=== PATIENT | male | born 2000 | race Caucasian/White ===

== ENCOUNTER 2022-04-08 20:01 | Inpatient (IN) | payer OTHER, BC ==
[~2022-04-08 20:01] MED LIST: Iopamidol 370 76% 100 ML VIAL ONE
[2022-04-08 20:20] LABS: Hemoglobin 14.9 g/dL (14.0-18.0); Mean Corpuscular HGB CONC 34.7 g/dL (32.0-36.0); Mean Corpuscular Hemoglobin 31.3 pg (27.0-31.0); Mean Corpuscular Volume 90.3 fl (78.0-98.0); Mean Platelet Volume 6.7 fL (7.4-10.4); Platelet Count 375 10x3/uL (130-400); RBC Distribution Width 11.3 % (11.5-14.5); Red Blood Cell (RBC) Count 4.75 mill/uL (4.70-6.10); White Blood Cell (WBC) Count 24.5 10x3/uL (4.8-10.8)
[2022-04-08] MEDS ORDERED: Ondansetron PF 4 MG/2 ML Vial ONE (20:24)
[2022-04-08 20:32] LABS: Prothrombin Time 13.4 sec (12.0-14.7)
[2022-04-08 20:34] LABS: ALT (SGPT) 32 U/L (8-55); AST (SGOT) 35 U/L (5-34); Albumin 4.4 g/dL (3.5-5.0); Alkaline Phosphatase 102 U/L (40-110); Anion Gap 15 mmol/L (10-20); BUN (Urea Nitrogen) 11 mg/dL (8.9-20.6); Bilirubin, Total 0.5 mg/dL (0.2-1.2); Calc. Creatinine Clearance 0 mL/min (70-130); Calcium 9.2 mg/dL (7.8-10.44); Carbon Dioxide 18 mmol/L (22-29); Chloride 107 mmol/L (98-107); Estimated GFR 95; Globulin 3.4 g/dL (2.4-3.5); Glucose 139 mg/dL (70-105); Potassium 3.5 mmol/L (3.5-5.1); Protein, Total 7.8 g/dL (6.0-8.3); Sodium 136 mmol/L (136-145)
[2022-04-08 20:48] LABS: Lymphocytes 13 % (21-51); MDiff Complete? YES; Metamyelocyte 1 % (0-0); Monocytes 3 % (0-10); Neutrophil 83 % (42-75); Platelet Morphology Comment Appears Adequate; RBC Morphology Normal; Vacuoles SLIGHT
[2022-04-08 20:53] LABS: Acetaminophen Less than 10.0 mcg/mL (10.0-30.0); Alcohol Less than 10 mg/dL (Less than 10); Salicylate Less than 8.0 mg/dL (15.0-30.0)
[2022-04-08] MEDS ORDERED: HYDROmorphone 0.5 MG/0.5 ML SYRINGE ONE (20:56)
[2022-04-08] MEDS ORDERED: Ketorolac Tromethamine 30 MG/ML VIAL ONE (20:56)
[2022-04-08] MEDS ORDERED: Ondansetron PF 4 MG/2 ML Vial IVP PRN (21:04)
[2022-04-08] MEDS ORDERED: hydrALAZINE 20 MG/ML VIAL SLOW IVP PRN (21:04)
[2022-04-08] MEDS ORDERED: Dextrose 5% in Water 1,000 ML IV PRN (21:04)
[2022-04-08] MEDS ORDERED: Dextrose 50% Abboject 50 ML SYRINGE SLOW IVP PRN (21:04)
[2022-04-08 21:40] LABS: CK (CPK) 215 U/L (30-200); Magnesium 1.7 mg/dL (1.6-2.6); Phosphorus 2.9 mg/dL (2.3-4.7)
[2022-04-08 22:18] LABS: Amphetamine Detected (NotDetected); Barbiturates Screen Not Detected (NotDetected); Benzodiazepine Screen Not Detected (NotDetected); Cocaine Metabolite Screen Not Detected (NotDetected); Methadone Not Detected (NotDetected); Methamphetamine Not Detected (NotDetected); Opiate Screen Detected (NotDetected); Oxycodone Screen Not Detected (NotDetected); Phencyclidine (PCP) Not Detected (NotDetected); THC/Cannabinoid Screen Not Detected (NotDetected); Tricyclic Screen Not Detected (NotDetected)
[2022-04-08] MEDS ORDERED: Potassium Phosphate 15 MMOL in Sodium Chloride 0.9% 250 ML 250 ML IVPB SCH (22:30)
[2022-04-08] MEDS ORDERED: Magnesium 2 GM/50 ML(in water) 2 GM in Premix Bag 1 BAG IVPB SCH (22:30)
[2022-04-08 22:45] VITALS: BMI 25.8
[2022-04-08] MEDS: Cyclobenzaprine 10 MG TAB PO PRN (22:58)
[2022-04-08] MEDS: Sodium Chloride 0.9% 1,000 ML IV SCH (22:59)
[2022-04-08] MEDS: Acetaminophen 500 MG TAB PO SCH (23:00)
[2022-04-08] MEDS: traMADol HCl 50 MG TAB PO SCH (23:02)
[2022-04-08 23:11] LABS: Lactic Acid 2.3 mmol/L (0.5-2.2)
[2022-04-08] MEDS: Morphine 4 MG/ML VIAL SLOW IVP PRN (23:45)
[2022-04-08] MEDS: Ketorolac Tromethamine 30 MG/ML VIAL IVP SCH (23:52)
[2022-04-09] MEDS: Ketorolac Tromethamine 30 MG/ML VIAL IVP SCH ×5 (00:11→23:13)
[2022-04-09 02:46] LABS: SARS-CoV-2 NAA Rapid Test Not Detected (NotDetected)
[2022-04-09] MEDS: Morphine 4 MG/ML VIAL SLOW IVP PRN ×4 (03:20→15:08)
[2022-04-09] MEDS: Acetaminophen 500 MG TAB PO SCH ×3 (05:08→17:08)
[2022-04-09] MEDS: traMADol HCl 50 MG TAB PO SCH ×3 (05:09→17:08)
[2022-04-09] MEDS: Sodium Chloride 0.9% 1,000 ML IV SCH ×2 (05:58→15:43)
[2022-04-09 06:17] LABS: #Eosinphils 0.1 thou/uL (0.0-0.7); #Lymphocytes 1.7 thou/uL (1.20-3.40); #Monocytes 0.8 thou/uL (0.11-0.59); #Neutrophils 6.2 thou/uL (1.40-6.50); %Basophils 0.1 % (0.0-1.0); %Eosinophils 0.9 % (0.0-10.0); %Lymphocytes 19.4 % (21.0-51.0); %Monocytes 9.5 % (0.0-10.0); %Neutrophils 70.2 % (42.0-75.0); Mean Corpuscular HGB CONC 34.3 g/dL (32.0-36.0); Mean Corpuscular Hemoglobin 31.7 pg (27.0-31.0); Mean Corpuscular Volume 92.2 fl (78.0-98.0); Mean Platelet Volume 6.5 fL (7.4-10.4); Platelet Count 291 10x3/uL (130-400); RBC Distribution Width 11.3 % (11.5-14.5); Red Blood Cell (RBC) Count 3.79 mill/uL (4.70-6.10); White Blood Cell (WBC) Count 8.9 10x3/uL (4.8-10.8)
[2022-04-09] MEDS: Cyclobenzaprine 10 MG TAB PO PRN ×2 (06:30→21:52)
[2022-04-09 06:39] LABS: Anion Gap 9 mmol/L (10-20); BUN (Urea Nitrogen) 9 mg/dL (8.9-20.6); Calc. Creatinine Clearance 146 mL/min (70-130); Calcium 8.2 mg/dL (7.8-10.44); Carbon Dioxide 20 mmol/L (22-29); Chloride 106 mmol/L (98-107); Estimated GFR 126; Glucose 87 mg/dL (70-105); Potassium 3.4 mmol/L (3.5-5.1); Sodium 132 mmol/L (136-145)
[2022-04-09] MEDS: Potassium Chloride 20 MEQ in Premix Bag 1 BAG IVPB SCH ×2 (08:08→11:09)
[2022-04-09] MEDS: Gabapentin 300 MG CAP PO SCH ×3 (08:13→21:49)
[2022-04-09] MEDS: Polyethylene Glycol 3350 17 GM Packet PO SCH (08:13)
[2022-04-09] MEDS: Famotidine 20 MG TAB PO SCH ×2 (08:13→21:48)
[2022-04-09] MEDS: Senokot S 8.6-50 MG TAB PO SCH ×2 (08:14→21:53)
[2022-04-09] MEDS ORDERED: Clindamycin/D5W 900 MG in Premix Bag 1 BAG IVPB SCH ×3 (08:30→16:00)
[2022-04-09] MEDS ORDERED: Potassium Chloride 40 MEQ in Premix Bag 1 BAG IVPB SCH (09:00)
[2022-04-09] MEDS ORDERED: Clindamycin/D5W 900 mg/50 ml Premix Bag ONE (09:34)
[2022-04-09] MEDS ORDERED: Dexmedetomidine 200 MCG/2 ML VIAL ONE (09:51)
[2022-04-09] MEDS ORDERED: Fentanyl 250 MCG/5 ML VIAL ONE (09:58)
[2022-04-09] MEDS ORDERED: HYDROmorphone 0.5 MG/0.5 ML SYRINGE ONE (09:58)
[2022-04-09] MEDS ORDERED: Lidocaine 1% PF 5 ML VIAL ONE (10:06)
[2022-04-09] MEDS ORDERED: Dexamethasone 20 MG/5 ML VIAL ONE (10:06)
[2022-04-09] MEDS ORDERED: PROPOFOL 200 MG/20 ML VIAL ONE (10:06)
[2022-04-09] MEDS ORDERED: Ondansetron PF 4 MG/2 ML Vial ONE (10:06)
[2022-04-09] MEDS ORDERED: Ketorolac Tromethamine 30 MG/ML VIAL ONE (10:06)
[2022-04-09] MEDS ORDERED: PHENYLEPHRINE-NS 100 MCG/ML 10 ML SYRINGE ONE (10:06)
[2022-04-09] MEDS ORDERED: Hydrocortisone Sod Succ/PF 100 mg/2 ml Vial ONE (11:02)
[2022-04-09] MEDS ORDERED: Ondansetron HCl/PF 4 MG/2 ML Vial IVP PRN (12:16)
[2022-04-09] MEDS ORDERED: Promethazine HCl 25 MG/ML VIAL IM PRN (12:16)
[2022-04-09] MEDS ORDERED: HYDROmorphone 2 MG/ML VIAL SLOW IVP PRN (12:16)
[2022-04-09] MEDS: Clindamycin/D5W 900 MG in Premix Bag 1 BAG IVPB SCH (17:07)
[2022-04-09] MEDS ORDERED: Acetaminophen/Codeine 30-300mg Tablet PO PRN (21:18)
[2022-04-09] MEDS: Acetaminophen/Codeine 30-300mg Tablet PO SCH (23:12)
[2022-04-09] MEDS: Acetaminophen 325 MG TAB PO SCH (23:27)
[2022-04-10] MEDS: Clindamycin/D5W 900 MG in Premix Bag 1 BAG IVPB SCH (01:56)
[2022-04-10] MEDS: Ketorolac Tromethamine 30 MG/ML VIAL IVP SCH ×3 (05:14→17:28)
[2022-04-10] MEDS: Acetaminophen 325 MG TAB PO SCH ×4 (05:17→23:05)
[2022-04-10] MEDS: Acetaminophen/Codeine 30-300mg Tablet PO SCH ×4 (05:17→23:06)
[2022-04-10 07:28] LABS: #Lymphocytes 0.9 thou/uL (1.20-3.40); #Monocytes 0.6 thou/uL (0.11-0.59); #Neutrophils 12.3 thou/uL (1.40-6.50); %Basophils 0.1 % (0.0-1.0); %Eosinophils 0.3 % (0.0-10.0); %Lymphocytes 6.2 % (21.0-51.0); %Monocytes 4.4 % (0.0-10.0); Hemoglobin 10.7 g/dL (14.0-18.0); Mean Corpuscular HGB CONC 34.2 g/dL (32.0-36.0); Mean Corpuscular Hemoglobin 31.9 pg (27.0-31.0); Mean Corpuscular Volume 93.1 fl (78.0-98.0); Mean Platelet Volume 6.8 fL (7.4-10.4); Platelet Count 245 10x3/uL (130-400); RBC Distribution Width 11.1 % (11.5-14.5); Red Blood Cell (RBC) Count 3.37 mill/uL (4.70-6.10); White Blood Cell (WBC) Count 13.8 10x3/uL (4.8-10.8)
[2022-04-10 07:57] LABS: Chloride 106 mmol/L (98-107)
[2022-04-10 07:58] LABS: Calcium 8.5 mg/dL (7.8-10.44); Potassium 3.8 mmol/L (3.5-5.1); Sodium 132 mmol/L (136-145)
[2022-04-10 07:59] LABS: Glucose 161 mg/dL (70-105)
[2022-04-10 08:00] LABS: Anion Gap 9 mmol/L (10-20); Carbon Dioxide 21 mmol/L (22-29)
[2022-04-10 08:02] LABS: Calc. Creatinine Clearance 152 mL/min (70-130); Estimated GFR 128; Phosphorus 2.8 mg/dL (2.3-4.7)
[2022-04-10 08:03] LABS: BUN (Urea Nitrogen) 5 mg/dL (8.9-20.6)
[2022-04-10 08:04] LABS: Magnesium 1.6 mg/dL (1.6-2.6)
[2022-04-10] MEDS: Gabapentin 300 MG CAP PO SCH ×3 (08:40→20:45)
[2022-04-10] MEDS: Famotidine 20 MG TAB PO SCH ×2 (08:41→20:45)
[2022-04-10] MEDS: Senokot S 8.6-50 MG TAB PO SCH ×2 (09:00→20:47)
[2022-04-10] MEDS: Polyethylene Glycol 3350 17 GM Packet PO SCH (09:00)
[2022-04-10] MEDS ORDERED: Magnesium 2 GM/50 ML(in water) 3 GM in Premix Bag 1 BAG IVPB SCH (09:30)
[2022-04-10] MEDS ORDERED: Magnesium Sulfate 3 GM in Sodium Chloride 0.9% 100 ML IVPB SCH (10:00)
[2022-04-10] MEDS: Cyclobenzaprine 10 MG TAB PO PRN (14:39)
[2022-04-10] MEDS: Ibuprofen 800 MG TAB PO PRN (20:45)
[2022-04-11] MEDS: Acetaminophen 325 MG TAB PO SCH (05:42)
[2022-04-11] MEDS: Acetaminophen/Codeine 30-300mg Tablet PO SCH ×4 (05:42→23:39)
[2022-04-11 06:16] LABS: #Eosinphils 0.4 thou/uL (0.0-0.7); #Lymphocytes 2.2 thou/uL (1.20-3.40); #Monocytes 0.7 thou/uL (0.11-0.59); #Neutrophils 5.6 thou/uL (1.40-6.50); %Basophils 0.5 % (0.0-1.0); %Eosinophils 4.8 % (0.0-10.0); %Lymphocytes 24.6 % (21.0-51.0); %Monocytes 7.9 % (0.0-10.0); %Neutrophils 62.2 % (42.0-75.0); Hemoglobin 10.2 g/dL (14.0-18.0); Mean Corpuscular HGB CONC 33.5 g/dL (32.0-36.0); Mean Corpuscular Hemoglobin 31.2 pg (27.0-31.0); Mean Corpuscular Volume 93.4 fl (78.0-98.0); Mean Platelet Volume 6.7 fL (7.4-10.4); Platelet Count 245 10x3/uL (130-400); RBC Distribution Width 11.2 % (11.5-14.5); Red Blood Cell (RBC) Count 3.28 mill/uL (4.70-6.10); White Blood Cell (WBC) Count 8.9 10x3/uL (4.8-10.8)
[2022-04-11 06:36] LABS: Anion Gap 11 mmol/L (10-20); BUN (Urea Nitrogen) 5 mg/dL (8.9-20.6); Calc. Creatinine Clearance 159 mL/min (70-130); Calcium 8.6 mg/dL (7.8-10.44); Carbon Dioxide 23 mmol/L (22-29); Chloride 109 mmol/L (98-107); Estimated GFR 130; Glucose 94 mg/dL (70-105); Magnesium 1.8 mg/dL (1.6-2.6); Potassium 3.3 mmol/L (3.5-5.1); Sodium 140 mmol/L (136-145)
[2022-04-11] MEDS: Gabapentin 300 MG CAP PO SCH ×3 (08:52→20:47)
[2022-04-11] MEDS: Famotidine 20 MG TAB PO SCH ×2 (08:53→20:47)
[2022-04-11] MEDS: Senokot S 8.6-50 MG TAB PO SCH ×2 (08:53→20:46)
[2022-04-11] MEDS: Polyethylene Glycol 3350 17 GM Packet PO SCH ×2 (08:53→08:57)
[2022-04-11] MEDS ORDERED: Potassium Chloride 40 MEQ in Premix Bag 1 BAG IVPB SCH (09:00)
[2022-04-11] MEDS ORDERED: traMADol HCl 50 MG TAB PO PRN (10:46)
[2022-04-11] MEDS: Cyclobenzaprine 10 MG TAB PO PRN ×2 (11:01→20:46)
[2022-04-11] MEDS: Ibuprofen 800 MG TAB PO PRN (20:45)
[2022-04-12] MEDS ORDERED: FLU VACC QS2022-23(6MOS UP)/PF 60 MCG/0.5 ML SYRINGE IM ONE (02:45)
[2022-04-12] MEDS: Acetaminophen/Codeine 30-300mg Tablet PO SCH ×2 (06:06→12:22)
[2022-04-12 06:22] LABS: #Eosinphils 0.5 thou/uL (0.0-0.7); #Lymphocytes 2.2 thou/uL (1.20-3.40); #Monocytes 0.7 thou/uL (0.11-0.59); #Neutrophils 4.8 thou/uL (1.40-6.50); %Basophils 0.3 % (0.0-1.0); %Eosinophils 5.7 % (0.0-10.0); %Lymphocytes 26.3 % (21.0-51.0); %Monocytes 8.9 % (0.0-10.0); %Neutrophils 58.9 % (42.0-75.0); Hemoglobin 10.5 g/dL (14.0-18.0); Mean Corpuscular HGB CONC 33.5 g/dL (32.0-36.0); Mean Corpuscular Hemoglobin 31.2 pg (27.0-31.0); Mean Platelet Volume 6.7 fL (7.4-10.4); Platelet Count 241 10x3/uL (130-400); RBC Distribution Width 11.2 % (11.5-14.5); Red Blood Cell (RBC) Count 3.38 mill/uL (4.70-6.10); White Blood Cell (WBC) Count 8.2 10x3/uL (4.8-10.8)
[2022-04-12 06:54] LABS: Anion Gap 11 mmol/L (10-20); BUN (Urea Nitrogen) 5 mg/dL (8.9-20.6); Calc. Creatinine Clearance 164 mL/min (70-130); Calcium 8.5 mg/dL (7.8-10.44); Carbon Dioxide 24 mmol/L (22-29); Chloride 105 mmol/L (98-107); Estimated GFR 131; Glucose 83 mg/dL (70-105); Magnesium 1.7 mg/dL (1.6-2.6); Phosphorus 5.5 mg/dL (2.3-4.7); Potassium 3.5 mmol/L (3.5-5.1); Sodium 136 mmol/L (136-145)
[2022-04-12] MEDS: Senokot S 8.6-50 MG TAB PO SCH (09:21)
[2022-04-12] MEDS: Famotidine 20 MG TAB PO SCH (09:21)
[2022-04-12] MEDS: Gabapentin 300 MG CAP PO SCH ×2 (09:22→14:20)
[2022-04-12] MEDS: Polyethylene Glycol 3350 17 GM Packet PO SCH (09:23)
[2022-04-12 12:39] VITALS: BP 143/78; TEMP 98.8
== END 2022-04-12 15:00 | disposition home or self-care (01) | DRG 480 ==
LOC: ERS 20:01 → SJJU 21:07
PROVIDERS: ADMIT Surgery; ATTEND Surgery
PROC: 0QS806Z Reposition Right Femoral Shaft with Intramedullary Internal Fixation Device, Open Approach (ICD-10-PCS; principal; 2022-04-09)
PROC: 0QSG06Z Reposition Right Tibia with Intramedullary Internal Fixation Device, Open Approach (ICD-10-PCS; 2022-04-09)
DX: S72.301A Unspecified fracture of shaft of right femur, initial encounter for closed fracture (principal); S82.831B Other fracture of upper and lower end of right fibula, initial encounter for open fracture type I or II; S82.301B Unspecified fracture of lower end of right tibia, initial encounter for open fracture type I or II; F90.9 Attention-deficit hyperactivity disorder, unspecified type; G89.11 Acute pain due to trauma; S92.321A Displaced fracture of second metatarsal bone, right foot, initial encounter for closed fracture; S92.331A Displaced fracture of third metatarsal bone, right foot, initial encounter for closed fracture; S92.341A Displaced fracture of fourth metatarsal bone, right foot, initial encounter for closed fracture; E87.6 Hypokalemia; D64.9 Anemia, unspecified; Z98.890 Other specified postprocedural states; Z79.899 Other long term (current) drug therapy; Z88.0 Allergy status to penicillin; Z20.822 Contact with and (suspected) exposure to COVID-19; V89.2XXA Person injured in unspecified motor-vehicle accident, traffic, initial encounter
CPT/HCPCS: 27502; 27788; 27825; 36415; 70450; 71045; 71260; 72125; 72170; 74177; 75635; 80048; 80053; 80306; 80307; 82550; 83605; 83735; 84100; 85025; 85610; 85730; 86850; 86900; 86901; 96365; 96366; 96375; C1713; J1100; J1170; J1650; J1720; J1885; J1956; J2270; J2405; J2704; J3010; J3475; J3480; J3490; J7050; Q9967; U0002

== ENCOUNTER 2022-10-07 06:13 | Day surgery (SDC) | payer BC ==
[2022-10-06 14:33] VITALS: BMI 23.7
[2022-10-07] MEDS ORDERED: LevoFLOXacin 500 mg/D5W 100 ML BAG ONE (06:24)
[2022-10-07] MEDS ORDERED: Clindamycin/D5W 900 mg/50 ml Premix Bag ONE (06:24)
[2022-10-07] MEDS ORDERED: Lidocaine 1% (PF) 30 ML VIAL ONE (07:03)
[2022-10-07] MEDS ORDERED: Midazolam HCl 2 mg/2 ml Vial ONE (07:13)
[2022-10-07] MEDS ORDERED: Ketorolac Tromethamine 30 MG/ML VIAL ONE (07:29)
[2022-10-07] MEDS ORDERED: Ondansetron PF 4 MG/2 ML Vial ONE (07:29)
[2022-10-07] MEDS ORDERED: PROPOFOL 200 MG/20 ML VIAL ONE (07:29)
[2022-10-07] MEDS ORDERED: Lidocaine 1% PF 5 ML VIAL ONE (07:29)
[2022-10-07] MEDS ORDERED: fentaNYL 50 mcg/mL 1 mL Vial ONE ×2 (07:36→08:10)
[2022-10-07] MEDS ORDERED: Bupivacaine PF 0.5% 30 ML VIAL ONE (07:59)
[2022-10-07] MEDS ORDERED: EPINEPHrine 1 MG/ML AMP ONE (07:59)
== END 2022-10-07 10:00 | disposition home or self-care (01) ==
LOC: SDC 06:13
PROVIDERS: ATTEND Orthopaedic Surgery
PROC: 0QPG04Z Removal of Internal Fixation Device from Right Tibia, Open Approach (ICD-10-PCS; principal; 2022-10-07)
PROC: 0QP604Z Removal of Internal Fixation Device from Right Upper Femur, Open Approach (ICD-10-PCS; principal; 2022-10-07)
DX: T84.84XA Pain due to internal orthopedic prosthetic devices, implants and grafts, initial encounter (principal); Y79.2 Prosthetic and other implants, materials and accessory orthopedic devices associated with adverse incidents; Z88.0 Allergy status to penicillin
CPT/HCPCS: J0171; J1885; J1956; J2001; J2250; J2405; J2704; J3010; J3490; S0020